=== PATIENT | female | born 1965 | race American Indian/Alaskan Native ===

== ENCOUNTER 2017-02-12 17:32 | Emergency (ER) | payer OTHER ==
[2017-02-12 17:48] VITALS: BP 136/75
--- NOTE | 2017-02-12 17:51 | EDM.PDOC ---
ED HPI GENERAL MEDICAL PROBLEM - General Chief Complaint: General Stated Complaint: [id number] COLD AND BREATHING CANT TALK EARS Time Seen by Provider: 02/12/17 17:44 Source of Information: Reports: Patient History Limitations: Reports: No Limitations - History of Present Illness INITIAL COMMENTS - FREE TEXT/NARRATIVE: 51 yo [place] Female c/o sore throat since ( 4 days). Pt. has four grand children who she watches and have been sick. Pt. also c/o sinus drainage and cough Onset Date: 02/09/17 Onset Time: 12:00 Duration: Day(s): Location: Reports: Head, Face, Chest Severity: Moderate Improves with: Reports: None Worsens with: Reports: None Context: Reports: Sick Contact Associated Symptoms: Reports: Cough, Fever/Chills, Headaches - Related Data Allergies Allergy/AdvReac Type Severity Reaction Status Date / Time lactose Allergy Diarrhea Verified 02/12/17 17:38 miconazole Allergy Blisters Verified 02/12/17 17:38 promethazine [From Phenergan] Allergy Blurred Verified 02/12/17 17:38 Vision Home Meds: Home Meds Insulin Detemir [Levemir Flexpen] 30 units SUBCUT BEDTIME 02/04/14 [History] Multivitamin [Multi-Vitamin Daily] 1 tab PO DAILY 02/04/14 [History] metFORMIN HCl [Metformin HCl] 1,000 mg PO BID 02/04/14 [History] Lisinopril [Zestril] 1 tab PO DAILY 05/01/15 [History] Albuterol [Proventil HFA] 6.7 gm INH Q4H PRN 12/22/15 [History] Cholecalciferol (Vitamin D3) [Vitamin D3] 2,000 units PO DAILY 12/22/15 [History ] Fluticasone Propionate [Flovent] 2 spray IH DAILY PRN 12/22/15 [History] Ibuprofen 800 mg PO TID PRN 12/22/15 [History] Insulin Aspart [NovoLOG] 5 unit SUBCUT TIDMEALS 12/22/15 [History] atorvaSTATin Calcium [Atorvastatin Calcium] 10 mg PO DAILY 12/22/15 [History] Aspirin [Halfprin] 1 tab PO DAILY 03/13/16 [History] Past Medical History HEENT History: Reports: Other (See Below) Other HEENT History: wears glasses Cardiovascular History: Reports: Hypertension Respiratory History: Reports: Pneumonia, Recurrent Other Respiratory History: hasn't had pneumonia since 2012, sore throat Gastrointestinal History: Reports: GERD Genitourinary History: Reports: None 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 (See Below) Other OB/BYN History: 2 c-sections in 1988 and 1990 Musculoskeletal History: Reports: Osteoarthritis Neurological History: Reports: None Psychiatric History: Reports: None Endocrine/Metabolic History: Reports: Diabetes, Type II, IDDM, Obesity/BMI 30+ Other Endocrine/Metabolic History: diagnosed in 1994 Hematologic History: Reports: Anesthesia Reaction, Iron Deficiency Immunologic History: Reports: None Oncologic (Cancer) History: Reports: None Dermatologic History: Reports: None, Other (See Below) Other Dermatologic History: infection to left great toe with debridement - Infectious Disease History Infectious Disease History: Reports: Chicken Pox - Past Surgical History Female Surgical History: Reports: Section Musculoskeletal Surgical History: Reports: Other (See Below) Social & Family History - Family History Family Medical History: Noncontributory Cardiac: Reports: CAD : Reports: Renal Disease/Insufficiency Endocrine/Metabolic: Reports: Diabetes, type II, Obesity/MBI 30+ - Tobacco Use Smoking Status *Q: Former Smoker Years of Tobacco use: 25 Packs/Tins Daily: 1 Used Tobacco, but Quit: Yes Month Tobacco Last Used: April Second Hand Smoke Exposure: No - Caffeine Use Caffeine Use: Reports: Coffee, Soda - Alcohol Use Days Per Week of Alcohol Use: 0 - Recreational Drug Use Recreational Drug Use: No - Living Situation & Occupation Living situation: Reports: with Family ED ROS ENT - Review of Systems Review Of Systems: See Below Constitutional: Reports: No Symptoms HEENT: Reports: Ear Pain, Sinus Problem, Throat Pain Respiratory: Reports: Cough Cardiovascular: Reports: No Symptoms Endocrine: Reports: No Symptoms GI/Abdominal: Reports: No Symptoms : Reports: No Symptoms Musculoskeletal: Reports: No Symptoms Skin: Reports: No Symptoms Neurological: Reports: No Symptoms Psychiatric: Reports: No Symptoms Hematologic/Lymphatic: Reports: No Symptoms Immunologic: Reports: No Symptoms ED EXAM, ENT - Physical Exam Exam: See Below Exam Limited By: No Limitations General Appearance: Alert, No Apparent Distress, Obese Eye Exam: Bilateral Eye: EOMI, PERRL Ears: Normal External Exam, Normal Canal, Hearing Grossly Normal, TM Bulging ( Bilateral) Nose: Normal Inspection, Normal Mucousa, No Blood Mouth/Throat: Normal Inspection, Normal Gums, Normal Oropharynx, Pharyngeal Erythema, Throat Pain Head: Atraumatic Neck: Normal Inspection Respiratory/Chest: No Respiratory Distress, Lungs Clear Cardiovascular: Normal Peripheral Pulses, Regular Rate, Rhythm, No Edema GI/Abdominal: Normal Bowel Sounds, Soft Back: Normal Inspection Extremities: Normal Inspection, Normal Range of Motion Neurological: Alert, Oriented, CN II-XII Intact, Normal Cognition Psychiatric: Normal Affect Skin: Warm, Dry, Intact Lymphatic: No Adenopathy Departure - Departure Time of Disposition: 17:56 Disposition: Home, Self-Care 01 Condition: Good Clinical Impression: Nasal sinus congestion, Cough in adult Pharyngitis Qualifiers: Pharyngitis/tonsillitis etiology: unspecified etiology Qualified Code(s): J02.9 - Acute pharyngitis, unspecified - Discharge Information Forms: ED Department Discharge Additional Instructions: Rest Increase intake of Water and Juice Take Daily Multivitamin Try using a Vics Vaporizer in your bedroom Medications: ZITHROMAX 250mg QD # 4 LADI 180mg QD # 10 TESSALON PERLES 100mg # 30 F/U w/ PCP
== END 2017-02-12 18:10 | disposition home or self-care (01) ==
LOC: DL.ED 17:32
DX: J02.9 Acute pharyngitis, unspecified (principal); E11.9 Type 2 diabetes mellitus without complications; Z91.011 Allergy to milk products; Z88.8 Allergy status to other drugs, medicaments and biological substances; Z79.4 Long term (current) use of insulin; Z79.82 Long term (current) use of aspirin; Z79.899 Other long term (current) drug therapy; Z87.891 Personal history of nicotine dependence
CPT/HCPCS: 87081; 87430; 87804; 99283

== ENCOUNTER 2018-12-16 11:53 | Emergency (ER) | payer MEDICAID, OTHER ==
[2018-12-16 13:47] VITALS: BP 133/68; PULSE 101
[2018-12-16] MEDS ORDERED: Sodium Chloride 0.9% 10 ML Syringe FLUSH PRN (13:47)
[2018-12-16] MEDS ORDERED: Piperacillin/Tazobactam 3.375 GM in Sodium Chloride 0.9% 100 ML IV ONE (13:51)
[2018-12-16] MEDS ORDERED: Acetaminophen/HYDROcodone 325-10 MG Tab PO ONE (13:52)
[2018-12-16 14:24] LABS: ANION GAP 11.3; CHLORIDE,CL 102 mmol/L (101-111); SODIUM,NA 136 mmol/L (135-145)
--- NOTE | 2018-12-16 15:10 | EDM.PDOC ---
"Scribed by Jeanne Kelly 12/16/18 [id number] for Niya Cam MD ED HPI GENERAL MEDICAL PROBLEM - General Chief Complaint: Lower Extremity Injury/Pain Stated Complaint: POSSIBLE INFECTION L FOOT Time Seen by Provider: 12/16/18 13:30 Source of Information: Reports: Patient, RN, RN Notes Reviewed History Limitations: Reports: No Limitations - History of Present Illness INITIAL COMMENTS - FREE TEXT/NARRATIVE: Patient presents to ER with pain in the left foot. She is a diabetic and has been seeing a blueprint processor for a diabetic foot ulcer. On Monday she noticed that the foot started to get red and now goes up to the ankle. She states that she has had chills but maybe low grade fevers, but did not measure her temperature. Onset: Gradual Duration: Getting Worse Location: Reports: Lower Extremity, Left Quality: Reports: Ache Severity: Severe Improves with: Reports: None Worsens with: Reports: None Associated Symptoms: Reports: No Other Symptoms Left Feet Pain Score (Numeric/FACES): 6 - Related Data Allergies Allergy/AdvReac Type Severity Reaction Status Date / Time clindamycin Allergy Itching Verified 12/16/18 13:51 lactose Allergy Diarrhea Verified 12/16/18 13:47 miconazole Allergy Blisters Verified 12/16/18 13:47 promethazine [From Phenergan] Allergy Blurred Verified 12/16/18 13:47 Vision Home Meds: Home Meds Insulin Detemir [Levemir Flexpen] 60 units SUBCUT BEDTIME 02/04/14 [History] Multivitamin [Multi-Vitamin Daily] 1 tab PO DAILY 02/04/14 [History] metFORMIN HCl [Metformin HCl] 1,000 mg PO BID 02/04/14 [History] Lisinopril [Zestril] 1 tab PO DAILY 05/01/15 [History] Albuterol [Proventil HFA] 6.7 gm INH Q4H PRN 12/22/15 [History] Cholecalciferol (Vitamin D3) [Vitamin D3] 2,000 units PO DAILY 12/22/15 [History ] Fluticasone Propionate [Flovent] 2 spray IH DAILY PRN 12/22/15 [History] Ibuprofen 800 mg PO TID PRN 12/22/15 [History] Insulin Aspart [NovoLOG] 40 unit SUBCUT TIDMEALS 12/22/15 [History] atorvaSTATin Calcium [Atorvastatin Calcium] 10 mg PO DAILY 12/22/15 [History] Aspirin [Halfprin] 1 tab PO DAILY 03/13/16 [History] Past Medical History HEENT History: Reports: Impaired Vision, Other (See Below) Other HEENT History: wears glasses Cardiovascular History: Reports: Hypertension Respiratory History: Reports: Pneumonia, Recurrent Other Respiratory History: hasn't had pneumonia since 2011, sore throat Gastrointestinal History: Reports: GERD Genitourinary History: Reports: None 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 (See Below) Other BUSINESS DEVELOPMENT PROFESSIONAL History: 2 c-sections in 1988 and 1990 Musculoskeletal History: Reports: Osteoarthritis Neurological History: Reports: None Psychiatric History: Reports: None Endocrine/Metabolic History: Reports: Diabetes, Type II, IDDM, Obesity/BMI 30+ Other Endocrine/Metabolic History: diagnosed in 1994 Hematologic History: Reports: Anesthesia Reaction, Iron Deficiency Immunologic History: Reports: None Oncologic (Cancer) History: Reports: None Dermatologic History: Reports: None, Other (See Below) Other Dermatologic History: infection to left great toe with debridement - Infectious Disease History Infectious Disease History: Reports: Chicken Pox - Past Surgical History Head Surgeries/Procedures: Reports: None Female Surgical History: Reports: Section Musculoskeletal Surgical History: Reports: Other (See Below) Other Musculoskeletal Surgeries/Procedures:: 2 back surgeries Social & Family History - Family History Family Medical History: Noncontributory Cardiac: Reports: CAD : Reports: Renal Disease/Insufficiency Endocrine/Metabolic: Reports: Diabetes, type II, Obesity/MBI 30+ - Caffeine Use Caffeine Use: Reports: Coffee, Soda - Living Situation & Occupation Living situation: Reports: with Family Review of Systems - Review of Systems Review Of Systems: ROS reveals no pertinent complaints other than HPI. ED EXAM, GENERAL - Physical Exam Exam: See Below Exam Limited By: No Limitations General Appearance: Alert, WD/WN, No Apparent Distress, Obese Throat/Mouth: Normal Inspection, Normal Voice Head: Atraumatic, Normocephalic Respiratory/Chest: No Respiratory Distress, Lungs Clear, Normal Breath Sounds, No Accessory Muscle Use, Chest Non-Tender Cardiovascular: Regular Rate, Rhythm, No Edema Extremities: Joint Swelling (Left 1st MTPJ with a chronic appearing ulcer at the plantar surface with a collagen dressing, the entire left toe is swollen, acutely tender and erythematous with erythema extending to the ankle.) Neurological: Alert, Oriented, No Motor/Sensory Deficits Psychiatric: Normal Mood Course - Vital Signs Last Recorded V/S: Last Vital Signs Temp 97.5 F 12/16/18 13:15 Pulse 101 H 12/16/18 13:15 Resp 16 12/16/18 13:15 BP 133/68 12/16/18 13:15 Pulse Ox 98 12/16/18 13:15 - Orders/Labs/Meds Orders: Active Orders 24 hr Category Date Time Status Peripheral IV Care [RC] . DIRECTED Care 12/16/18 13:49 Active Toes Great Toe Lt TA [CR] Urgent Exams 12/16/18 13:47 Taken Sodium Chloride 0.9% [Saline Flush] Med 12/16/18 13:47 Active 10 ml FLUSH ASDIRECTED PRN Peripheral IV Insertion Adult [OM.PC] Stat Oth 12/16/18 13:46 Ordered Medication Orders Sodium Chloride (Saline Flush) 10 ml FLUSH ASDIRECTED PRN PRN Reason: Keep Vein Open Last Admin: 12/16/18 14:26 Dose: 10 ml Labs: Laboratory Tests 12/16/18 12/16/18 12/16/18 Range/Units 14:00 14:00 14:00 WBC 11.9 H (5.0-10.0) 10^3/uL RBC 5.50 H (4.2-5.4) 10^6/uL Hgb 15.0 (12.0-16.0) g/dL Hct 44.7 (37.0-47.0) % MCV 81.3 (80-100) fL MCH 27.3 (27.0-34.0) pg MCHC 33.6 (33.0-35.0) g/dL Plt Count 225 (150-450) 10^3/uL Neut % (Auto) 75.9 H (42.2-75.2) % Lymph % (Auto) 14.7 L (20.5-50.1) % Island % (Auto) 7.3 (2-8) % Eos % (Auto) 1.8 (1.0-3.0) % Baso % (Auto) 0.3 (0.0-1.0) % Sodium 136 (135-145) mmol/L Potassium 4.3 (3.6-5.0) mmol/L Chloride 102 (101-111) mmol/L Carbon Dioxide 27.0 (21.0-31.0) mmol/L Anion Gap 11.3 BUN 10 (7-18) mg/dL Creatinine 0.7 (0.6-1.3) mg/dL Est Cr Clr Drug Dosing TNP Estimated GFR (MDRD) > 60 BUN/Creatinine Ratio 14.28 Glucose 264 H (74-105) mg/dL Lactic Acid 1.1 (0.5-2.2) mmol/L Calcium 9.1 (8.4-10.2) mg/dl Total Bilirubin 0.6 (0.2-1.0) mg/dL AST 15 (10-42) IU/L ALT 21 (10-60) IU/L Alkaline Phosphatase 89 (42-121) IU/L C-Reactive Protein (0.0-1.3) mg/dL Total Protein 8.0 (6.7-8.2) g/dl Albumin 3.7 (3.2-5.5) g/dl Globulin 4.3 Albumin/Globulin Ratio 0.86 12/16/18 Range/Units 14:00 WBC (5.0-10.0) 10^3/uL RBC (4.2-5.4) 10^6/uL Hgb (12.0-16.0) g/dL Hct (37.0-47.0) % MCV (80-100) fL MCH (27.0-34.0) pg MCHC (33.0-35.0) g/dL Plt Count (150-450) 10^3/uL Neut % (Auto) (42.2-75.2) % Lymph % (Auto) (20.5-50.1) % Island % (Auto) (2-8) % Eos % (Auto) (1.0-3.0) % Baso % (Auto) (0.0-1.0) % Sodium (135-145) mmol/L Potassium (3.6-5.0) mmol/L Chloride (101-111) mmol/L Carbon Dioxide (21.0-31.0) mmol/L Anion Gap BUN (7-18) mg/dL Creatinine (0.6-1.3) mg/dL Est Cr Clr Drug Dosing Estimated GFR (MDRD) BUN/Creatinine Ratio Glucose (74-105) mg/dL Lactic Acid (0.5-2.2) mmol/L Calcium (8.4-10.2) mg/dl Total Bilirubin (0.2-1.0) mg/dL AST (10-42) IU/L ALT (10-60) IU/L Alkaline Phosphatase (42-121) IU/L C-Reactive Protein > 20.0 H (0.0-1.3) mg/dL Total Protein (6.7-8.2) g/dl Albumin (3.2-5.5) g/dl Globulin Albumin/Globulin Ratio Meds: Medications Generic Name Dose Route Start Last Admin Trade Name Freq PRN Reason Stop Dose Admin Sodium Chloride 10 ml 12/16/18 13:47 12/16/18 14:26 Saline Flush FLUSH 10 ml ASDIRECTED PRN Administration Keep Vein Open Discontinued Medications Generic Name Dose Route Start Last Admin Trade Name Freq PRN Reason Stop Dose Admin Hydrocodone Bitart/Acetaminophen 1 tab 12/16/18 13:52 12/16/18 14:24 [place] 325-10 Mg PO 12/16/18 13:53 1 tab ONETIME ONE Administration Piperacillin Sod/Tazobactam 100 mls @ 200 mls/hr 12/16/18 13:51 12/16/18 14: 23 Sod 3.375 gm/ Sodium Chloride IV 12/16/18 14:20 200 mls/hr ONETIME ONE Administration - Radiology Interpretation Free Text/Narrative:: [facility] Final Radiology Report Call: [phone] assistance Online chat: [email or web address] Name: DIANE MATHEWS Age: 53Years F Date: 12/16/2018 SSN: -- : 1965 Study: XR TOES LEFT Requesting Physician: NIYA CAM Images: 3 Addl Studies: Provided Clinical History: Contrast: Contrast Medium: Contrast Amount: Contrast Method: Page 1 of 2 PROCEDURE INFORMATION: Exam: XR Left Toe(s) Exam date and time: 12/16/2018 2:06 PM Clinical history: 53 years old, female; Other: Possible osteomyelitis left 1st toe/mtpj--chronic nonhealing diabetic plantar ulcer overlying left 1st mtpj with acute toe and forefoot erythema TECHNIQUE: Imaging protocol: XR Left toes. Views: Minimum 2 views. COMPARISON: No relevant prior studies available. FINDINGS: Bones/joints: No acute fracture or dislocation is identified. There is a mild hallux valgus deformity. The first metatarsophalangeal joint is mildly narrowed and with mild periarticular osteophyte formation, as are multiple interphalangeal joints. There are productive changes about the hallux sesamoids. There is no osseous erosion or cortical destruction. Soft tissues: There is soft tissue swelling about the first toe, with apparent ulceration along the plantar aspect. Small calcification is present in the soft tissues adjacent to the base of the first proximal phalanx, and could be degenerative. There are also small calcifications in the soft tissues adjacent to the plantar and posterior calcaneus, which could be degenerative. IMPRESSION: 1. Soft tissue swelling about the first toe, with apparent ulceration along the plantar aspect. No definite radiographic evidence for osteomyelitis, but consider three-phase bone scan or MRI in this regard. 2. Degenerative changes as described. 3. Mild hallux valgus. DIANE MATHEWS | Final Radiology Report CONFIDENTIALITY STATEMENT This report is intended only for use by the referring physician, and only in accordance with law. If you received this in error, call [phone]. Page 2 of 2 Thank you for allowing us to participate in the care of your patient. Dictated and Authenticated by: Jose Francisco Moseley MD 12/16/2018 2:57 PM Central Time ([place] & [place]) Departure - Departure Time of Disposition: 15:00 Disposition: Home, Self-Care 01 Condition: Good Clinical Impression: Cellulitis of foot, left, Diabetic ulcer of left great toe - Discharge Information *PRESCRIPTION DRUG MONITORING PROGRAM REVIEWED*: No *COPY OF PRESCRIPTION DRUG MONITORING REPORT IN PATIENT JASMYN: No Instructions: Cellulitis, Adult, [id number], Diabetes Mellitus and Foot Care Forms: ED Department Discharge Additional Instructions: Rx: Cephalexin 500mg Rx: Doxycycline 100mg Rx: Hydrocodone APAP 5mg/325mg *Do not drive while under the influence of this medication. Call your blueprint processor tomorrow to schedule an urgent follow up appointment. See your primary doctor for recheck if unable to see your blueprint processor in the next 2 days. - My Orders Last 24 Hours: My Active Orders 12/16/18 13:46 Peripheral IV Insertion Adult [OM.PC] Stat 12/16/18 13:47 Toes Great Toe Lt TA [CR] Urgent Sodium Chloride 0.9% [Saline Flush] 10 ml FLUSH ASDIRECTED PRN 12/16/18 13:49 Peripheral IV Care [RC] . DIRECTED - Assessment/Plan Last 24 Hours: My Active Orders 12/16/18 13:46 Peripheral IV Insertion Adult [OM.PC] Stat 12/16/18 13:47 Toes Great Toe Lt TA [CR] Urgent Sodium Chloride 0.9% [Saline Flush] 10 ml FLUSH ASDIRECTED PRN 12/16/18 13:49 Peripheral IV Care [RC] . DIRECTED I have read and agree with the documentation that has been completed regarding this visit. By signing this record, I attest that the documentation was completed in my physical presence and is an accurate record of the encounter."
== END 2018-12-16 15:42 | disposition home or self-care (01) ==
LOC: DL.ED 11:53
DX: L03.116 Cellulitis of left lower limb (principal); E11.621 Type 2 diabetes mellitus with foot ulcer; L97.529 Non-pressure chronic ulcer of other part of left foot with unspecified severity; I10 Essential (primary) hypertension; E66.9 Obesity, unspecified; Z79.4 Long term (current) use of insulin; Z79.899 Other long term (current) drug therapy; Z79.82 Long term (current) use of aspirin; Z88.1 Allergy status to other antibiotic agents; Z88.8 Allergy status to other drugs, medicaments and biological substances; Z91.011 Allergy to milk products
CPT/HCPCS: 36415; 73660; 80053; 83605; 85025; 86140; 96365; 99283; A9270; J2543; J7050

== ENCOUNTER 2019-05-02 17:23 | Emergency (ER) | payer MEDICAID ==
[2019-05-02 17:34] VITALS: BP 150/87; PULSE 104
--- NOTE | 2019-05-02 17:41 | EDM.PDOC ---
<Lisandro Velarde - Last Filed: 05/02/19 17:49> ED HPI GENERAL MEDICAL PROBLEM - General Chief Complaint: Lower Extremity Injury/Pain Stated Complaint: LEFT FOOT FELL AND HURT IT Time Seen by Provider: 05/02/19 17:38 Source of Information: Reports: Patient, RN, RN Notes Reviewed History Limitations: Reports: No Limitations - History of Present Illness INITIAL COMMENTS - FREE TEXT/NARRATIVE: 53 y.o F presents with L foot pain after a fall that occurred 2hours ago. Patient reports that she slipped on some ice, injuring her L foot. Patient currently has a wound vac to the top of the L foot, reports that it is healing well and appears to not have been affected in the fall. Patient did take 2 tylenol at 1700 650mg which helped very little with the pain. Patient reports both arms hurt, legs hurt, and foot hurts. Patient reports that both ankle and foot are swollen and tender to touch. Reports sharp, shooting pain. She was unable to stand and bear weight on her left foot after she fell. Onset: Today Duration: Constant Location: Reports: Lower Extremity, Left (ankle) Quality: Reports: Sharp, Throbbing Severity: Mild Improves with: Reports: Immobilization Worsens with: Reports: Movement Associated Symptoms: Denies: Chest Pain, cough w sputum, Fever/Chills, Headaches , Loss of Appetite, Nausea/Vomiting, Shortness of Breath, Syncope Treatments [employer]: Reports: Acetaminophen (650 mg prior to ED arrival) Left Feet Pain Score (Numeric/FACES): 8 - Related Data Allergies Allergy/AdvReac Type Severity Reaction Status Date / Time clindamycin Allergy Itching Verified 05/02/19 17:35 lactose Allergy Diarrhea Verified 05/02/19 17:35 miconazole Allergy Blisters Verified 05/02/19 17:35 promethazine [From Phenergan] Allergy Blurred Verified 05/02/19 17:35 Vision Home Meds: Home Meds Insulin Detemir [Levemir Flexpen] 60 units SUBCUT BEDTIME 02/04/14 [History] Multivitamin [Multi-Vitamin Daily] 1 tab PO DAILY 02/04/14 [History] metFORMIN HCl [Metformin HCl] 1,000 mg PO BID 02/04/14 [History] Lisinopril [Zestril] 1 tab PO DAILY 05/01/15 [History] Albuterol [Proventil HFA] 6.7 gm INH Q4H PRN 12/22/15 [History] Cholecalciferol (Vitamin D3) [Vitamin D3] 2,000 units PO DAILY 12/22/15 [History ] Fluticasone Propionate [Flovent] 2 spray IH DAILY PRN 12/22/15 [History] Ibuprofen 800 mg PO TID PRN 12/22/15 [History] Insulin Aspart [NovoLOG] 40 unit SUBCUT TIDMEALS 12/22/15 [History] atorvaSTATin Calcium [Atorvastatin Calcium] 10 mg PO DAILY 12/22/15 [History] Aspirin [Halfprin] 1 tab PO DAILY 03/13/16 [History] Past Medical History HEENT History: Reports: Impaired Vision, Other (See Below) Other HEENT History: wears glasses Cardiovascular History: Reports: Hypertension Respiratory History: Reports: Bronchitis, Recurrent, Pneumonia, Recurrent Other Respiratory History: hasn't had pneumonia since 2011 Gastrointestinal History: Reports: GERD Genitourinary History: Reports: None NANOSYSTEMS ENGINEER History: Reports: Other (See Below) Other NANOSYSTEMS ENGINEER History: 2 c-sections in 1988 and 1990 Musculoskeletal History: Reports: Osteoarthritis Neurological History: Reports: None Psychiatric History: Reports: None Endocrine/Metabolic History: Reports: Diabetes, Type II, IDDM, Obesity/BMI 30+ Other Endocrine/Metabolic History: diagnosed in 1994 Hematologic History: Reports: Anesthesia Reaction, Iron Deficiency Immunologic History: Reports: None Oncologic (Cancer) History: Reports: None Dermatologic History: Reports: None, Other (See Below) Other Dermatologic History: infection to left great toe with debridement 2018 Unlcer to bottom of left ball of foot. - Infectious Disease History Infectious Disease History: Reports: Chicken Pox, Mumps - Past Surgical History Head Surgeries/Procedures: Reports: None Respiratory Surgical History: Reports: None GI Surgical History: Reports: None Female Surgical History: Reports: Section Musculoskeletal Surgical History: Reports: Other (See Below) Other Musculoskeletal Surgeries/Procedures:: 2 back surgeries, lower lumbar surgery, tumor removal underneath spinal column, abscess removal left scapula area. Social & Family History - Family History Family Medical History: Noncontributory Cardiac: Reports: CAD : Reports: Renal Disease/Insufficiency Endocrine/Metabolic: Reports: Diabetes, type II, Obesity/MBI 30+ - Caffeine Use Caffeine Use: Reports: Coffee - Living Situation & Occupation Living situation: Reports: with Family Review of Systems - Review of Systems Review Of Systems: See Below Constitutional: Reports: No Symptoms Eyes: Reports: No Symptoms Ears: Reports: No Symptoms Nose: Reports: No Symptoms Mouth/Throat: Reports: No Symptoms Respiratory: Reports: No Symptoms Cardiovascular: Reports: No Symptoms GI/Abdominal: Reports: No Symptoms Genitourinary: Reports: No Symptoms Musculoskeletal: Reports: Leg Pain (left ankle), Joint Pain (left ankle), Joint Swelling (left ankle) Skin: Reports: No Symptoms Neurological: Reports: No Symptoms Psychiatric: Reports: No Symptoms ED EXAM, GENERAL - Physical Exam Exam: See Below Exam Limited By: No Limitations General Appearance: Alert, WD/WN, Mild Distress Respiratory/Chest: No Respiratory Distress, Lungs Clear, Normal Breath Sounds, No Accessory Muscle Use, Chest Non-Tender Cardiovascular: Normal Peripheral Pulses, Regular Rate, Rhythm, No Edema, No Gallop, No JVD, No Murmur, No Rub Peripheral Pulses: 0: Dorsalis Pedis (L) (unable to assess due to wound vac on dorsum of left foot), 2+: Posterior Tibial (L) GI/Abdominal: Normal Bowel Sounds, Soft, Non-Tender, No Organomegaly, No Distention, No Abnormal Bruit, No Mass Extremities: No Pedal Edema, Normal Capillary Refill, Joint Swelling (left ankle ), Leg Pain, Limited Range of Motion Neurological: Alert, Oriented, CN II-XII Intact, Normal Cognition, Normal Gait, Normal Reflexes, No Motor/Sensory Deficits Psychiatric: Normal Affect, Normal Mood Skin Exam: Warm, Dry, Intact, Ecchymosis (left ankle) Course - Vital Signs Last Recorded V/S: Last Vital Signs Temp 97 F 05/02/19 17:29 Pulse 104 H 05/02/19 17:29 Resp 20 05/02/19 17:29 BP 150/87 H 05/02/19 17:29 Pulse Ox 100 05/02/19 17:29 - Orders/Labs/Meds Orders: Active Orders 24 hr Category Date Time Status Ankle Min 3V Lt [CR] Urgent Exams 05/02/19 17:50 Taken Departure - Departure Disposition: Home, Self-Care 01 Clinical Impression: Fibula fracture Qualifiers: Encounter type: initial encounter Fibula location: distal Fracture type: closed Fracture morphology: unspecified fracture morphology Laterality: left Qualified Code(s): S82.832A - Other fracture of upper and lower end of left fibula, initial encounter for closed fracture - Discharge Information Instructions: Cast or Splint Care, Adult, [id number] Forms: ED Department Discharge Additional Instructions: May walk with walking boot on Follow up with Dr. Jensen next week May take boot off to change wound vac dressing and shower, and for bed Ice area as tolerated May use Tylenol as directed for pain Make sure wound vac is draining appropriately after each dressing change and reapplication of the boot Sepsis Event Note - Evaluation Sepsis Screening Result: No Definite Risk - Focused Exam Vital Signs: Vital Signs Temp Pulse Resp BP Pulse Ox 05/02/19 17:29 97 F 104 H 20 150/87 H 100 Date Exam was Performed: 05/02/19 Time Exam was Performed: 17:49 <Betsy Chambers - Last Filed: 05/02/19 19:16> Course - Radiology Interpretation Free Text/Narrative:: Left ankle xray: FINDINGS: Bones/joints: Distal left fibular oblique fracture at the level of the tibiofibular ligament. No significant displacement. No tibial fracture. Previous 1st metatarsal surgery. No disruption of the ankle mortise. Soft tissues: Soft tissue swelling. Calcific plantar fasciitis. Distal Achilles tendon minor calcification consistent chronic tendinopathy. IMPRESSION: 1. Distal left fibular oblique fracture without significant displacement. This is at the level of the tibiofibular ligament. 2. Soft tissue swelling. 3. Calcific plantar fasciitis and minor distal Achilles tendon calcific tendinitis. Thank you for allowing us to participate in the care of your patient. Dictated and Authenticated by: Felix Tran MD 05/02/2019 6:08 PM Central Time ([place] & [place]) See rad report - Re-Assessments/Exams Free Text/Narrative Re-Assessment/Exam: 05/02/19 19:16 I personally performed or re-performed the physical examination and medical decision making. I have verified all student documentation or findings, including history, physical exam and/or medical decision making. Departure - Departure Time of Disposition: 19:05 Condition: Fair - Discharge Information *PRESCRIPTION DRUG MONITORING PROGRAM REVIEWED*: No *COPY OF PRESCRIPTION DRUG MONITORING REPORT IN PATIENT JASMYN: No Sepsis Event Note - Focused Exam Date Exam was Performed: 05/02/19 Time Exam was Performed: 19:15
== END 2019-05-02 19:29 | disposition home or self-care (01) ==
LOC: DL.ED 17:23
DX: S82.832A Other fracture of upper and lower end of left fibula, initial encounter for closed fracture (principal); I10 Essential (primary) hypertension; E11.9 Type 2 diabetes mellitus without complications; Z79.4 Long term (current) use of insulin; Z79.84 Long term (current) use of oral hypoglycemic drugs; Z79.899 Other long term (current) drug therapy; Z88.1 Allergy status to other antibiotic agents; Z88.3 Allergy status to other anti-infective agents; Z91.011 Allergy to milk products; W00.0XXA Fall on same level due to ice and snow, initial encounter
CPT/HCPCS: 73610-LT; 99283-25

== ENCOUNTER 2019-12-05 11:06 | Inpatient (IN) | payer MEDICAID ==
[2019-12-05] MEDS ORDERED: Ondansetron 4 MG Tab.DIS PO PRN (15:38)
[2019-12-05] MEDS ORDERED: Non-Formulary Medication 1 Each (Trolamine Salicylate/Aloe Vera 1 APPLIC) TOP PRN (15:42)
[2019-12-05] MEDS ORDERED: Albuterol 6.7 GM Inhaler INH PRN (15:42)
[2019-12-05] MEDS: Docusate Sodium 100 MG Cap PO PRN (16:42)
[2019-12-05] MEDS: oxyCODONE 5 MG Tab PO PRN ×2 (16:42→22:40)
[2019-12-05] MEDS: metroNIDAZOLE 250 MG Tab PO SCH (18:30)
[2019-12-05] MEDS: Insulin Lispro 100 Units/ML 3 ML Vial SUBCUT SCH (18:30)
--- NOTE | 2019-12-05 19:38 | HP ---
CHIEF COMPLAINT: Left lower abdomen wound. HISTORY OF PRESENT ILLNESS: The patient is a 54-year-old female who was recently discharged from [facility] in [place]. She was admitted there last November 28, 2019, with sepsis with cellulitis of the left lower abdomen with open draining wound. She had incision and drainage and debridement of the necrotizing soft tissue infection on 11/30/2019, and blood cultures were negative. Wound cultures showed group B strep, methicillin-resistant Staphylococcus aureus, anaerobes, and she was followed by ID. Surgery also placed a wound VAC to the open wound. Now, she is admitted to swing bed to continue with her IV antibiotics and wound VAC management. PAST MEDICAL HISTORY: Remarkable for diabetes mellitus, hypertension, and obesity. SOCIAL HISTORY: The patient is a nonsmoker, nonalcohol drinker. FAMILY HISTORY: Noncontributory. REVIEW OF SYSTEMS: The patient denies any fever, chills, chest pain, shortness of breath, abdominal pain, nausea, vomiting, dysuria. She did mention that this morning she has some cramping of the right lower leg. Otherwise, the review of systems is negative. MEDICATIONS: Amlodipine 5 mg daily; aspirin 81 mg daily; Lipitor 10 mg daily; Levemir 30 units twice a day; latanoprost ophthalmic drops; Flagyl 500 mg 1 tablet every 12 hours for 10 days; morphine CR 15 mg q.12 hours; multivitamins; NovoLog 40 units at breakfast, 30 units at lunch, and 40 units at supper; omeprazole 20 mg daily; oxycodone immediate-release 5 mg every 4 hours as needed; pioglitazone 15 mg daily; ProAir 1 puff every 4 hours as needed; saxagliptin 2.5 mg daily; ceftaroline 400 mg every 12 hours for 14 days; Trolamine cream; and vitamin D3. ALLERGIES: Clindamycin, doxycycline, Phenergan with codeine, and miconazole. PHYSICAL EXAMINATION: General: The patient is alert and oriented, not in any acute distress. Vital Signs: Blood pressure is 140/69, pulse of 84, respirations of 18, temperature of 97.3, and saturations 93%. SHEENT: Normocephalic. There are pink palpebral conjunctivae. Sclerae anicteric. Neck: No JVD. No lymphadenopathy. Heart: Regular rate and rhythm. Normal S1 and S2. No gallops. No rubs. Lungs: Equal bilaterally. No crackles, no wheezing. Abdomen: Obese and remarkable for the abdominal wall pannus and there is the wound VAC on the left lower abdomen. Otherwise, it is soft. Bowel sounds positive. Extremities: Negative for any significant pedal edema. No calf tenderness. Dorsalis pedis pulse right foot is good. ADMITTING DIAGNOSES: 1. Necrotizing soft tissue infection of the abdominal wall. 2. Hypertension. 3. Type 2 diabetes mellitus. 4. History of sepsis. TREATMENT PLAN: The patient is going to be continued on her current medication and continue with IV antibiotic and wound VAC. The rest of the management as necessary. [facility] /[id number]
[2019-12-05] MEDS: Sodium Chloride 0.9% 10 ML Syringe FLUSH PRN (22:35)
[2019-12-05] MEDS: Insulin Glarg,Human.Rec.Analog 100 Unit/ML SUBCUT SCH (22:36)
[2019-12-05] MEDS: Morphine 15 MG Tab.ER PO SCH (22:38)
[2019-12-05] MEDS: Cholecalciferol (Vitamin D3) 25 MCG Tab PO SCH (22:40)
[2019-12-05] MEDS: Latanoprost 0.005% Ophth Soln 2.5 ML Bottle EYERT SCH (22:41)
[2019-12-06] MEDS: Omeprazole 20 MG Cap.CR PO SCH (05:49)
[2019-12-06] MEDS: Docusate Sodium 100 MG Cap PO PRN (06:04)
[2019-12-06] MEDS: Insulin Lispro 100 Units/ML 3 ML Vial SUBCUT SCH ×3 (09:02→17:46)
[2019-12-06] MEDS: metroNIDAZOLE 250 MG Tab PO SCH ×2 (09:04→17:45)
[2019-12-06] MEDS: amLODIPine 5 MG Tab PO SCH (09:05)
[2019-12-06] MEDS: atorvaSTATin 10 MG Tab PO SCH (09:05)
[2019-12-06] MEDS: Aspirin 81 MG Tab.EC PO SCH (09:06)
[2019-12-06] MEDS: Morphine 15 MG Tab.ER PO SCH ×2 (09:06→22:01)
[2019-12-06] MEDS: Multivitamins, Therapeutic with Minerals Tab PO SCH (09:06)
[2019-12-06] MEDS: Cholecalciferol (Vitamin D3) 25 MCG Tab PO SCH ×2 (09:06→22:04)
[2019-12-06] MEDS: Insulin Glarg,Human.Rec.Analog 100 Unit/ML SUBCUT SCH ×2 (09:08→22:03)
[2019-12-06] MEDS ORDERED: Bisacodyl 10 MG Supp RECTAL PRN (09:24)
[2019-12-06] MEDS: SODIUM CHLORIDE 0.9% IV SCH ×2 (11:11→22:35)
[2019-12-06] MEDS: CEFTAROLINE FOSAMIL IV SCH ×2 (11:11→22:35)
[2019-12-06] MEDS: Docusate Sodium 100 MG Cap PO SCH ×2 (11:55→22:04)
[2019-12-06] MEDS: oxyCODONE 5 MG Tab PO PRN (14:05)
[2019-12-06] MEDS ORDERED: Acetaminophen 325 MG Tab PO PRN (16:44)
[2019-12-06] MEDS: Nystatin Topical Powder 30 GM Bottle TOP SCH (22:06)
[2019-12-06] MEDS: Latanoprost 0.005% Ophth Soln 2.5 ML Bottle EYERT SCH (22:06)
[2019-12-06] MEDS ORDERED: Water For Injection, Sterile 20 ML ONE (22:25)
[2019-12-07] MEDS: Omeprazole 20 MG Cap.CR PO SCH (06:26)
[2019-12-07] MEDS: amLODIPine 5 MG Tab PO SCH (09:35)
[2019-12-07] MEDS: metroNIDAZOLE 250 MG Tab PO SCH ×2 (09:35→18:07)
[2019-12-07] MEDS: Insulin Glarg,Human.Rec.Analog 100 Unit/ML SUBCUT SCH ×2 (09:36→23:25)
[2019-12-07] MEDS: Multivitamins, Therapeutic with Minerals Tab PO SCH (09:36)
[2019-12-07] MEDS: atorvaSTATin 10 MG Tab PO SCH (09:36)
[2019-12-07] MEDS: Morphine 15 MG Tab.ER PO SCH ×2 (09:36→22:55)
[2019-12-07] MEDS: Aspirin 81 MG Tab.EC PO SCH (09:36)
[2019-12-07] MEDS: Cholecalciferol (Vitamin D3) 25 MCG Tab PO SCH ×2 (09:36→22:55)
[2019-12-07] MEDS: Docusate Sodium 100 MG Cap PO SCH ×2 (09:36→22:55)
[2019-12-07] MEDS: Insulin Lispro 100 Units/ML 3 ML Vial SUBCUT SCH ×3 (09:38→18:07)
[2019-12-07] MEDS: CEFTAROLINE FOSAMIL IV SCH ×2 (09:44→22:58)
[2019-12-07] MEDS: SODIUM CHLORIDE 0.9% IV SCH ×2 (09:44→22:58)
[2019-12-07] MEDS: Nystatin Topical Powder 30 GM Bottle TOP SCH ×2 (09:46→23:08)
[2019-12-07] MEDS: Magnesium Hydroxide 400 MG/5 ML Susp 30 ML Cup PO PRN (11:13)
[2019-12-07] MEDS ORDERED: Insulin Lispro Protamine/Lispro 75-25 100 Units/ML 10 ML Vial SUBCUT ONE (13:57)
[2019-12-07] MEDS: Nystatin Susp 100,000 Unit/ML 5 ML UD Cup PO SCH ×2 (18:07→22:57)
[2019-12-07] MEDS ORDERED: Water For Injection, Sterile 20 ML ONE (22:25)
[2019-12-07] MEDS: Latanoprost 0.005% Ophth Soln 2.5 ML Bottle EYERT SCH (23:07)
[2019-12-08] MEDS: Omeprazole 20 MG Cap.CR PO SCH (06:32)
[2019-12-08] MEDS ORDERED: Magnesium Citrate Solution 296 ML Bottle PO ONE (09:07)
[2019-12-08] MEDS: Multivitamins, Therapeutic with Minerals Tab PO SCH (09:30)
[2019-12-08] MEDS: Docusate Sodium 100 MG Cap PO SCH ×2 (09:30→20:48)
[2019-12-08] MEDS: amLODIPine 5 MG Tab PO SCH (09:30)
[2019-12-08] MEDS: metroNIDAZOLE 250 MG Tab PO SCH ×2 (09:30→17:54)
[2019-12-08] MEDS: Aspirin 81 MG Tab.EC PO SCH (09:30)
[2019-12-08] MEDS: Morphine 15 MG Tab.ER PO SCH ×2 (09:31→20:49)
[2019-12-08] MEDS: Nystatin Topical Powder 30 GM Bottle TOP SCH ×2 (09:31→20:50)
[2019-12-08] MEDS: Nystatin Susp 100,000 Unit/ML 5 ML UD Cup PO SCH ×3 (09:31→20:49)
[2019-12-08] MEDS: Cholecalciferol (Vitamin D3) 25 MCG Tab PO SCH ×2 (09:31→20:50)
[2019-12-08] MEDS: atorvaSTATin 10 MG Tab PO SCH (09:31)
[2019-12-08] MEDS: Insulin Lispro 100 Units/ML 3 ML Vial SUBCUT SCH ×3 (09:32→17:55)
[2019-12-08] MEDS: Insulin Glarg,Human.Rec.Analog 100 Unit/ML SUBCUT SCH ×2 (09:32→20:48)
[2019-12-08] MEDS: SODIUM CHLORIDE 0.9% IV SCH ×2 (09:48→21:00)
[2019-12-08] MEDS: CEFTAROLINE FOSAMIL IV SCH ×2 (09:48→21:00)
[2019-12-08] MEDS: Latanoprost 0.005% Ophth Soln 2.5 ML Bottle EYERT SCH (20:51)
[2019-12-09] MEDS: Omeprazole 20 MG Cap.CR PO SCH (06:07)
--- NOTE | 2019-12-09 09:31 | PN ---
DATE: 12/09/2019 SUBJECTIVE: The patient is a 54-year-old female [facility] to complete IV antibiotics and also for wound dressing changes for necrotizing soft tissue infection of the abdominal wall. She has been doing fairly well. She denies any chest pain, shortness of breath, fever, or chills or any other significant complaints. OBJECTIVE: Vital Signs: Blood pressure is 102/59, pulse of 82, respirations 16, and temperature of 98. Heart: Regular rate and rhythm. Normal S1 and S2. No gallops. No rubs. Lungs: Equal bilaterally. No crackles. No wheezing. Abdomen: Remarkable for the pannus and the wound on the abdominal fold. Extremities: Negative for any pedal edema. No calf tenderness. MEDICATIONS: Reviewed. PLAN: We will continue with present management and continue with IV ceftaroline and also with metronidazole. [facility] /[id number]
[2019-12-09] MEDS: Magnesium Hydroxide 400 MG/5 ML Susp 30 ML Cup PO PRN (09:32)
[2019-12-09] MEDS: Nystatin Susp 100,000 Unit/ML 5 ML UD Cup PO SCH ×3 (09:33→21:38)
[2019-12-09] MEDS: Aspirin 81 MG Tab.EC PO SCH (09:33)
[2019-12-09] MEDS: amLODIPine 5 MG Tab PO SCH (09:33)
[2019-12-09] MEDS: Morphine 15 MG Tab.ER PO SCH ×2 (09:33→21:36)
[2019-12-09] MEDS: metroNIDAZOLE 250 MG Tab PO SCH ×2 (09:34→17:34)
[2019-12-09] MEDS: Multivitamins, Therapeutic with Minerals Tab PO SCH (09:34)
[2019-12-09] MEDS: atorvaSTATin 10 MG Tab PO SCH (09:34)
[2019-12-09] MEDS: Docusate Sodium 100 MG Cap PO SCH ×2 (09:34→21:36)
[2019-12-09] MEDS: Cholecalciferol (Vitamin D3) 25 MCG Tab PO SCH ×2 (09:35→21:36)
[2019-12-09] MEDS: Insulin Glarg,Human.Rec.Analog 100 Unit/ML SUBCUT SCH ×2 (09:38→21:40)
[2019-12-09] MEDS: Nystatin Topical Powder 30 GM Bottle TOP SCH ×2 (09:38→21:42)
[2019-12-09] MEDS ORDERED: Water For Injection, Sterile 20 ML ONE (10:09)
[2019-12-09] MEDS: SODIUM CHLORIDE 0.9% IV SCH ×2 (10:29→21:31)
[2019-12-09] MEDS: CEFTAROLINE FOSAMIL IV SCH ×2 (10:29→21:31)
[2019-12-09] MEDS: ALOGLIPTIN 25 MG PO SCH (13:12)
[2019-12-09] MEDS: Insulin Lispro 100 Units/ML 3 ML Vial SUBCUT SCH ×3 (13:13→17:12)
[2019-12-09] MEDS: SAXAGLIPTIN HCL 2.5 MG PO SCH (13:49)
[2019-12-09] MEDS: Morphine 2 MG/ML SYRINGE IVPUSH PRN (15:22)
[2019-12-09] MEDS: Sodium Chloride 0.9% 10 ML Syringe FLUSH PRN (21:31)
[2019-12-09] MEDS: Latanoprost 0.005% Ophth Soln 2.5 ML Bottle EYERT SCH (21:39)
[2019-12-10] MEDS: Omeprazole 20 MG Cap.CR PO SCH (05:52)
[2019-12-10] MEDS: Insulin Glarg,Human.Rec.Analog 100 Unit/ML SUBCUT SCH ×2 (09:31→21:24)
[2019-12-10] MEDS: Aspirin 81 MG Tab.EC PO SCH (09:32)
[2019-12-10] MEDS: Insulin Lispro 100 Units/ML 3 ML Vial SUBCUT SCH ×3 (09:32→17:51)
[2019-12-10] MEDS: Morphine 15 MG Tab.ER PO SCH ×2 (09:33→21:22)
[2019-12-10] MEDS: Docusate Sodium 100 MG Cap PO SCH ×2 (09:34→21:23)
[2019-12-10] MEDS: Multivitamins, Therapeutic with Minerals Tab PO SCH (09:35)
[2019-12-10] MEDS: metroNIDAZOLE 250 MG Tab PO SCH ×2 (09:35→17:51)
[2019-12-10] MEDS: Cholecalciferol (Vitamin D3) 25 MCG Tab PO SCH ×2 (09:35→21:23)
[2019-12-10] MEDS: amLODIPine 5 MG Tab PO SCH (09:35)
[2019-12-10] MEDS: atorvaSTATin 10 MG Tab PO SCH (09:36)
[2019-12-10] MEDS: Nystatin Topical Powder 30 GM Bottle TOP SCH ×2 (09:36→21:21)
[2019-12-10] MEDS: ALOGLIPTIN 25 MG PO SCH (09:36)
[2019-12-10] MEDS: Nystatin Susp 100,000 Unit/ML 5 ML UD Cup PO SCH ×3 (09:36→21:23)
[2019-12-10] MEDS: CEFTAROLINE FOSAMIL IV SCH ×2 (10:17→21:26)
[2019-12-10] MEDS: SODIUM CHLORIDE 0.9% IV SCH ×2 (10:17→21:26)
[2019-12-10] MEDS: Latanoprost 0.005% Ophth Soln 2.5 ML Bottle EYERT SCH (21:22)
[2019-12-10] MEDS: Sodium Chloride 0.9% 10 ML Syringe FLUSH PRN (21:26)
[2019-12-11] MEDS: Omeprazole 20 MG Cap.CR PO SCH (06:00)
[2019-12-11] MEDS: Insulin Lispro 100 Units/ML 3 ML Vial SUBCUT SCH ×3 (09:42→17:47)
[2019-12-11] MEDS: Docusate Sodium 100 MG Cap PO SCH ×2 (09:43→22:02)
[2019-12-11] MEDS: amLODIPine 5 MG Tab PO SCH (09:43)
[2019-12-11] MEDS: Cholecalciferol (Vitamin D3) 25 MCG Tab PO SCH ×2 (09:43→22:04)
[2019-12-11] MEDS: Nystatin Susp 100,000 Unit/ML 5 ML UD Cup PO SCH ×3 (09:43→22:03)
[2019-12-11] MEDS: Multivitamins, Therapeutic with Minerals Tab PO SCH (09:43)
[2019-12-11] MEDS: Morphine 15 MG Tab.ER PO SCH ×2 (09:43→22:03)
[2019-12-11] MEDS: metroNIDAZOLE 250 MG Tab PO SCH ×2 (09:44→17:45)
[2019-12-11] MEDS: atorvaSTATin 10 MG Tab PO SCH (09:44)
[2019-12-11] MEDS: Aspirin 81 MG Tab.EC PO SCH (09:44)
[2019-12-11] MEDS: Nystatin Topical Powder 30 GM Bottle TOP SCH ×2 (09:45→22:02)
[2019-12-11] MEDS: SODIUM CHLORIDE 0.9% IV SCH ×2 (09:45→22:14)
[2019-12-11] MEDS: CEFTAROLINE FOSAMIL IV SCH ×2 (09:45→22:14)
[2019-12-11] MEDS: Insulin Glarg,Human.Rec.Analog 100 Unit/ML SUBCUT SCH ×2 (09:46→22:06)
[2019-12-11] MEDS: ALOGLIPTIN 25 MG PO SCH (09:46)
[2019-12-11] MEDS: oxyCODONE 5 MG Tab PO PRN (14:48)
[2019-12-11] MEDS: Morphine 2 MG/ML SYRINGE IVPUSH PRN (14:48)
[2019-12-11] MEDS: Latanoprost 0.005% Ophth Soln 2.5 ML Bottle EYERT SCH (22:02)
[2019-12-11] MEDS: Sodium Chloride 0.9% 10 ML Syringe FLUSH PRN (22:14)
[2019-12-12] MEDS: Omeprazole 20 MG Cap.CR PO SCH (05:15)
[2019-12-12 07:20] LABS: ANION GAP 8.4 mEq/L (7-13)
[2019-12-12] MEDS: Insulin Lispro 100 Units/ML 3 ML Vial SUBCUT SCH ×3 (09:13→17:30)
[2019-12-12] MEDS: Insulin Glarg,Human.Rec.Analog 100 Unit/ML SUBCUT SCH ×2 (09:13→21:27)
[2019-12-12] MEDS: Nystatin Susp 100,000 Unit/ML 5 ML UD Cup PO SCH ×3 (09:16→21:25)
[2019-12-12] MEDS: ALOGLIPTIN 25 MG PO SCH (09:16)
[2019-12-12] MEDS: Morphine 15 MG Tab.ER PO SCH ×2 (09:17→21:25)
[2019-12-12] MEDS: Multivitamins, Therapeutic with Minerals Tab PO SCH (09:17)
[2019-12-12] MEDS: Cholecalciferol (Vitamin D3) 25 MCG Tab PO SCH ×2 (09:17→21:25)
[2019-12-12] MEDS: metroNIDAZOLE 250 MG Tab PO SCH (09:18)
[2019-12-12] MEDS: amLODIPine 5 MG Tab PO SCH (09:20)
[2019-12-12] MEDS: Aspirin 81 MG Tab.EC PO SCH (09:20)
[2019-12-12] MEDS: atorvaSTATin 10 MG Tab PO SCH (09:20)
[2019-12-12] MEDS: Docusate Sodium 100 MG Cap PO SCH ×2 (09:21→21:26)
[2019-12-12] MEDS: CEFTAROLINE FOSAMIL IV SCH (09:22)
[2019-12-12] MEDS: SODIUM CHLORIDE 0.9% IV SCH (09:22)
[2019-12-12] MEDS: Nystatin Topical Powder 30 GM Bottle TOP SCH ×2 (09:22→21:27)
[2019-12-12] MEDS ORDERED: Sodium Chloride 0.9% 1,000 ML IV ONE (15:30)
[2019-12-12] MEDS: Latanoprost 0.005% Ophth Soln 2.5 ML Bottle EYERT SCH (21:28)
[2019-12-13] MEDS: Omeprazole 20 MG Cap.CR PO SCH (05:38)
[2019-12-13] MEDS: Nystatin Topical Powder 30 GM Bottle TOP SCH ×2 (08:29→20:12)
[2019-12-13] MEDS: ALOGLIPTIN 25 MG PO SCH (08:30)
[2019-12-13] MEDS: Cholecalciferol (Vitamin D3) 25 MCG Tab PO SCH ×2 (08:30→20:08)
[2019-12-13] MEDS: Morphine 15 MG Tab.ER PO SCH ×2 (08:31→20:09)
[2019-12-13] MEDS: amLODIPine 5 MG Tab PO SCH (08:31)
[2019-12-13] MEDS: Multivitamins, Therapeutic with Minerals Tab PO SCH (08:34)
[2019-12-13] MEDS: Docusate Sodium 100 MG Cap PO SCH ×2 (08:35→20:08)
[2019-12-13] MEDS: atorvaSTATin 10 MG Tab PO SCH (08:35)
[2019-12-13] MEDS: Aspirin 81 MG Tab.EC PO SCH (08:36)
[2019-12-13] MEDS: Insulin Glarg,Human.Rec.Analog 100 Unit/ML SUBCUT SCH ×2 (08:37→21:27)
[2019-12-13] MEDS: Nystatin Susp 100,000 Unit/ML 5 ML UD Cup PO SCH ×3 (08:37→20:09)
[2019-12-13] MEDS: Insulin Lispro 100 Units/ML 3 ML Vial SUBCUT SCH ×3 (08:39→17:33)
[2019-12-13] MEDS: Morphine 2 MG/ML SYRINGE IVPUSH PRN (11:19)
[2019-12-13] MEDS: Sodium Chloride 0.9% 10 ML Syringe FLUSH PRN (11:20)
[2019-12-13] MEDS ORDERED: Nystatin Crm 15 GM Tube TOP PRN (12:08)
[2019-12-13] MEDS ORDERED: Acetaminophen 325 MG Tab PO ONE (15:30)
[2019-12-13] MEDS ORDERED: Nystatin Susp 100,000 Unit/ML 5 ML UD Cup PO ONE (15:38)
[2019-12-13] MEDS: Latanoprost 0.005% Ophth Soln 2.5 ML Bottle EYERT SCH (20:13)
[2019-12-14] MEDS: Omeprazole 20 MG Cap.CR PO SCH (06:31)
[2019-12-14] MEDS: Docusate Sodium 100 MG Cap PO SCH ×2 (08:46→20:32)
[2019-12-14] MEDS: Aspirin 81 MG Tab.EC PO SCH (08:46)
[2019-12-14] MEDS: Cholecalciferol (Vitamin D3) 25 MCG Tab PO SCH ×2 (08:46→20:32)
[2019-12-14] MEDS: Multivitamins, Therapeutic with Minerals Tab PO SCH (08:48)
[2019-12-14] MEDS: atorvaSTATin 10 MG Tab PO SCH (08:48)
[2019-12-14] MEDS: Morphine 15 MG Tab.ER PO SCH ×2 (08:49→20:32)
[2019-12-14] MEDS: Nystatin Susp 100,000 Unit/ML 5 ML UD Cup PO SCH ×3 (08:49→20:31)
[2019-12-14] MEDS: Insulin Lispro 100 Units/ML 3 ML Vial SUBCUT SCH ×3 (08:50→18:26)
[2019-12-14] MEDS: amLODIPine 5 MG Tab PO SCH (08:51)
[2019-12-14] MEDS: Insulin Glarg,Human.Rec.Analog 100 Unit/ML SUBCUT SCH ×2 (08:52→21:23)
[2019-12-14] MEDS: ALOGLIPTIN 25 MG PO SCH (08:52)
[2019-12-14] MEDS: Nystatin Topical Powder 30 GM Bottle TOP SCH ×2 (08:53→20:31)
[2019-12-14] MEDS: Latanoprost 0.005% Ophth Soln 2.5 ML Bottle EYERT SCH (20:34)
[2019-12-15] MEDS: Omeprazole 20 MG Cap.CR PO SCH (05:51)
[2019-12-15] MEDS: Insulin Lispro 100 Units/ML 3 ML Vial SUBCUT SCH ×3 (08:29→17:10)
[2019-12-15] MEDS: atorvaSTATin 10 MG Tab PO SCH (08:41)
[2019-12-15] MEDS: Aspirin 81 MG Tab.EC PO SCH (08:41)
[2019-12-15] MEDS: Cholecalciferol (Vitamin D3) 25 MCG Tab PO SCH ×2 (08:43→20:48)
[2019-12-15] MEDS: Multivitamins, Therapeutic with Minerals Tab PO SCH (08:43)
[2019-12-15] MEDS: Morphine 15 MG Tab.ER PO SCH ×2 (08:43→20:48)
[2019-12-15] MEDS: Docusate Sodium 100 MG Cap PO SCH ×2 (08:43→20:48)
[2019-12-15] MEDS: amLODIPine 5 MG Tab PO SCH (08:43)
[2019-12-15] MEDS: Nystatin Susp 100,000 Unit/ML 5 ML UD Cup PO SCH ×3 (08:44→20:59)
[2019-12-15] MEDS: Nystatin Topical Powder 30 GM Bottle TOP SCH ×2 (08:46→20:53)
[2019-12-15] MEDS: ALOGLIPTIN 25 MG PO SCH (08:47)
[2019-12-15] MEDS: Insulin Glarg,Human.Rec.Analog 100 Unit/ML SUBCUT SCH ×2 (08:48→20:56)
[2019-12-15 10:35] LABS: ANION GAP 11.2 mEq/L (7-13)
[2019-12-15] MEDS: Sodium Chloride 0.9% 1,000 ML IV SCH ×2 (11:20→20:47)
[2019-12-15] MEDS: Latanoprost 0.005% Ophth Soln 2.5 ML Bottle EYERT SCH (20:52)
[2019-12-16] MEDS: Omeprazole 20 MG Cap.CR PO SCH (05:24)
[2019-12-16] MEDS: Sodium Chloride 0.9% 1,000 ML IV SCH ×2 (05:24→18:40)
[2019-12-16 06:26] LABS: ANION GAP 11.3 mEq/L (7-13)
[2019-12-16] MEDS: Insulin Glarg,Human.Rec.Analog 100 Unit/ML SUBCUT SCH ×2 (09:12→21:24)
[2019-12-16] MEDS: amLODIPine 5 MG Tab PO SCH (09:14)
[2019-12-16] MEDS: ALOGLIPTIN 25 MG PO SCH (09:14)
[2019-12-16] MEDS: Multivitamins, Therapeutic with Minerals Tab PO SCH (09:15)
[2019-12-16] MEDS: atorvaSTATin 10 MG Tab PO SCH (09:15)
[2019-12-16] MEDS: Docusate Sodium 100 MG Cap PO SCH ×2 (09:15→21:26)
[2019-12-16] MEDS: Aspirin 81 MG Tab.EC PO SCH (09:15)
[2019-12-16] MEDS: Cholecalciferol (Vitamin D3) 25 MCG Tab PO SCH ×2 (09:15→21:25)
[2019-12-16] MEDS: Nystatin Susp 100,000 Unit/ML 5 ML UD Cup PO SCH ×3 (09:15→21:26)
[2019-12-16] MEDS: Morphine 15 MG Tab.ER PO SCH ×2 (09:16→21:25)
[2019-12-16] MEDS: Insulin Lispro 100 Units/ML 3 ML Vial SUBCUT SCH ×3 (09:20→17:47)
[2019-12-16] MEDS: Nystatin Topical Powder 30 GM Bottle TOP SCH ×2 (09:20→21:27)
--- NOTE | 2019-12-16 11:04 | PCM.PN ---
- General Info Date of Service: 12/16/19 Subjective Update: Patient seen and examined today. Reports right leg weakness which is improving. Has no new complaints. Functional Status: Reports: Pain Controlled - Review of Systems General: Reports: No Symptoms HEENT: Reports: No Symptoms Pulmonary: Reports: No Symptoms Cardiovascular: Reports: No Symptoms Gastrointestinal: Reports: No Symptoms Genitourinary: Reports: No Symptoms Musculoskeletal: Reports: No Symptoms Skin: Reports: No Symptoms Neurological: Reports: No Symptoms Psychiatric: Reports: No Symptoms - Patient Data Vitals - Most Recent: Last Vital Signs Temp 98.2 F 12/15/19 20:00 Pulse 82 12/15/19 20:00 Resp 16 12/15/19 20:00 BP 131/85 12/16/19 09:14 Pulse Ox 98 12/15/19 20:00 Weight - Most Recent: 232 lb 9.6 oz I&O - Last 24 Hours: Intake & Output 12/15/19 12/16/19 12/16/19 22:59 06:59 14:59 Intake Total 775 1932 320 Balance 775 1932 320 Lab Results Last 24 Hours: Laboratory Results - last 24 hr 12/15/19 12/15/19 12/15/19 Range/Units 11:41 16:54 20:55 Sodium (136-145) mmol/L Potassium (3.5-5.1) mmol/L Chloride (98-107) mmol/L Carbon Dioxide (21-32) mmol/L Anion Gap (7-13) mEq/L BUN (7-18) mg/dL Creatinine (0.55-1.02) mg/dL Est Cr Clr Drug Dosing mL/min Estimated GFR (MDRD) Glucose (74-99) mg/dL POC Glucose 185 H 212 H 125 H (70-105) mg/dl Calcium (8.5-10.1) mg/dL 12/16/19 Range/Units 06:01 Sodium 141 (136-145) mmol/L Potassium 4.3 (3.5-5.1) mmol/L Chloride 107 (98-107) mmol/L Carbon Dioxide 27 (21-32) mmol/L Anion Gap 11.3 (7-13) mEq/L BUN 20 H (7-18) mg/dL Creatinine 1.63 H (0.55-1.02) mg/dL Est Cr Clr Drug Dosing 36.78 mL/min Estimated GFR (MDRD) 33 Glucose 128 H (74-99) mg/dL POC Glucose (70-105) mg/dl Calcium 8.4 L (8.5-10.1) mg/dL Med Orders - Current: Current Medications Acetaminophen (Tylenol) 650 mg PO Q6H PRN PRN Reason: Pain (mild 1-3) Albuterol (Proventil Hfa) 0 gm INH Q4H PRN PRN Reason: sob Amlodipine Besylate (Norvasc) 5 mg PO DAILY [facility] Last Admin: 12/16/19 09:14 Dose: 5 mg Documented by: Aspirin (Halfprin) 81 mg PO DAILY [facility] Last Admin: 12/16/19 09:15 Dose: 81 mg Documented by: Atorvastatin Calcium (Lipitor) 10 mg PO DAILY [facility] Last Admin: 12/16/19 09:15 Dose: 10 mg Documented by: Bisacodyl (Dulcolax) 10 mg RECTAL DAILY PRN PRN Reason: Constipation, use 2nd Last Admin: 12/07/19 13:33 Dose: 10 mg Documented by: Cholecalciferol (Vitamin D3) 25 mcg PO BID [facility] Last Admin: 12/16/19 09:15 Dose: 25 mcg Documented by: Docusate Sodium (Colace) 100 mg PO BID [facility] Last Admin: 12/16/19 09:15 Dose: 100 mg Documented by: Sodium Chloride (Normal Saline) 1,000 mls @ 100 mls/hr IV ASDIRECTED [facility] Last Admin: 12/16/19 05:24 Dose: 100 mls/hr Documented by: Insulin Glargine (Lantus) 30 unit SUBCUT BID [facility] Last Admin: 12/16/19 09:12 Dose: 30 units Documented by: Insulin Human Lispro (Humalog) 0 unit SUBCUT TIDMEALS [facility]; Protocol Last Admin: 12/16/19 09:20 Dose: Not Given Documented by: Latanoprost (Xalatan 0.005% Ophth Soln) 0 ml EYERT BEDTIME [facility] Last Admin: 12/15/19 20:52 Dose: 1 drop Documented by: Magnesium Hydroxide (Milk Of Magnesia) 30 ml PO DAILY PRN PRN Reason: Constipation, use first Last Admin: 12/09/19 09:32 Dose: 30 ml Documented by: Morphine Sulfate (Ms Contin) 15 mg PO Q12HR [facility] Last Admin: 12/16/19 09:16 Dose: 15 mg Documented by: Morphine Sulfate (Morphine) 2 mg IVPUSH ASDIRECTED PRN PRN Reason: Pain Last Admin: 12/13/19 11:19 Dose: 2 mg Documented by: Multivitamins/Minerals (Vitamins And Minerals) 1 tab PO DAILY [facility] Last Admin: 12/16/19 09:15 Dose: 1 tab Documented by: Alogliptin [Nesina] (25 Mg Tab *Own Med*) 25 mg PO DAILY [facility] Last Admin: 12/16/19 09:14 Dose: 25 mg Documented by: Nystatin (Nystop) 0 gm TOP BID [facility] Last Admin: 12/16/19 09:20 Dose: 1 applic Documented by: Nystatin (Mycostatin) 5 ml PO TID [facility] Last Admin: 12/16/19 09:15 Dose: 5 ml Documented by: Nystatin (Nystatin Crm) 0 gm TOP QID PRN PRN Reason: fungal infection Omeprazole (Omeprazole) 20 mg PO ACBREAKFAST [facility] Last Admin: 12/16/19 05:24 Dose: 20 mg Documented by: Ondansetron HCl (Zofran Odt) 4 mg PO Q4H PRN PRN Reason: nausea, able to take PO Last Admin: 12/07/19 11:13 Dose: 4 mg Documented by: Oxycodone HCl (Oxycodone) 5 mg PO Q4HR PRN PRN Reason: Pain (moderate 4-6) Last Admin: 12/11/19 14:48 Dose: 5 mg Documented by: Pioglitazone HCl (Actos) 15 mg PO DAILY [facility] Last Admin: 12/16/19 09:15 Dose: 15 mg Documented by: Senna/Docusate Sodium (Senna Plus) 1 tab PO DAILY PRN PRN Reason: Constipation Last Admin: 12/14/19 08:47 Dose: 1 tab Documented by: Senna/Docusate Sodium (Senna Plus) 1 tab PO BID [facility] Last Admin: 12/16/19 09:15 Dose: 1 tab Documented by: Sodium Chloride (Saline Flush) 10 ml FLUSH ASDIRECTED PRN PRN Reason: Keep Vein Open Last Admin: 12/13/19 11:20 Dose: 10 ml Documented by: Discontinued Medications Acetaminophen (Tylenol) 650 mg PO .STK-MED ONE Stop: 12/13/19 15:31 Docusate Sodium (Colace) 100 mg PO BID PRN PRN Reason: Constipation Last Admin: 12/06/19 06:04 Dose: 100 mg Documented by: Ceftaroline Fosamil 400 mg/ (Sodium Chloride) 100 mls @ 100 mls/hr IV Q12HR [facility] Last Admin: 12/12/19 09:22 Dose: 100 mls/hr Documented by: Sterile Water (Sterile Water For Injection) Confirm Administered Dose 20 mls @ as directed .ROUTE .STK-MED ONE Stop: 12/06/19 22:26 Last Admin: 12/06/19 22:25 Dose: 20 mls/hr Documented by: Sterile Water (Sterile Water For Injection) Confirm Administered Dose 20 mls @ as directed .ROUTE .STK-MED ONE Stop: 12/07/19 22:26 Last Admin: 12/07/19 23:06 Dose: 100 mls/hr Documented by: Sterile Water (Sterile Water For Injection) Confirm Administered Dose 20 mls @ as directed .ROUTE .STK-MED ONE Stop: 12/09/19 10:10 Last Admin: 12/09/19 13:47 Dose: Not Given Documented by: Sodium Chloride (Normal Saline) 1,000 mls @ 999 mls/hr IV .BOLUS ONE Stop: 12/12/19 16:30 Last Admin: 12/12/19 16:07 Dose: 999 mls/hr Documented by: Insulin Human Lispro (Humalog) 40 unit SUBCUT BIDMEALS [facility] Last Admin: 12/09/19 13:47 Dose: Not Given Documented by: Insulin Human Lispro (Humalog) 30 unit SUBCUT ACLUNCH [facility] Last Admin: 12/08/19 12:30 Dose: 30 unit Documented by: Insulin Lispro Protam/Lispro Human (Humalog Mix 75-25) 15 unit SUBCUT ONETIME ONE Stop: 12/07/19 13:58 Last Admin: 12/07/19 14:05 Dose: 15 unit Documented by: Magnesium Citrate (Citrate Of Magnesia) 296 ml PO ONETIME ONE Stop: 12/08/19 09:08 Last Admin: 12/08/19 09:34 Dose: 296 ml Documented by: Metronidazole (Metronidazole) 500 mg PO BIDMEALS [facility] Last Admin: 12/12/19 09:18 Dose: 500 mg Documented by: Non-Formulary Medication (Saxagliptin Hcl [Onglyza]) 2.5 mg PO DAILY [facility] Last Admin: 12/09/19 13:49 Dose: Not Given Documented by: Non-Formulary Medication (Trolamine Salicylate/Aloe Vera) 1 applic TOP QID PRN PRN Reason: Pain Nystatin (Mycostatin) 5 ml PO .STK-MED ONE Stop: 12/13/19 15:39 - Exam General: Alert, Oriented HEENT: Pupils Equal, Pupils Reactive, EOMI, Mucous Membr. Moist/[place] Neck: Supple Lungs: Clear to Auscultation, Normal Respiratory Effort Cardiovascular: Regular Rate, Regular Rhythm GI/Abdominal Exam: Normal Bowel Sounds, Soft, Non-Tender, No Organomegaly, No Distention, No Abnormal Bruit, No Mass, Pelvis Stable Back Exam: Normal Inspection, Full Range of Motion Extremities: Normal Inspection, Normal Range of Motion, Non-Tender, No Pedal Edema, Normal Capillary Refill Skin: Warm, Dry Wound/Incisions: Healing Well, Other (Wound VAC in place) Neurological: No New Focal Deficit Psy/Mental Status: Alert, Normal Affect, Normal Mood Sepsis Event Note - Evaluation Sepsis Screening Result: No Definite Risk - Focused Exam Vital Signs: Vital Signs BP 12/16/19 09:14 131/85 - Problem List Review Problem List Initiated/Reviewed/Updated: Yes - My Orders Last 24 Hours: My Active Orders 12/15/19 10:45 Sodium Chloride 0.9% [Normal Saline] 1,000 ml IV ASDIRECTED - Plan Plan:: Patient is a 54-year-old female with a medical history of type 2 diabetes mellitus, hypertension, obesity who was recently hospitalized for recently hospitalized for sepsis with cellulitis of the left lower abdomen status post incision and drainage and debridement of necrotizing soft tissue, status post wound VAC placement, with wound culture growing MRSA and anaerobes. Patient was here to complete antibiotics, continue wound care and participate in physical occupational therapies. Necrotizing soft tissue infection of the abdominal wall Completed antibiotics Continue wound cares Hypertension Continue home antibiosis Type 2 diabetes mellitus Blood sugar within acceptable limits Continue insulin regimen
[2019-12-16] MEDS: Latanoprost 0.005% Ophth Soln 2.5 ML Bottle EYERT SCH (21:27)
[2019-12-17] MEDS: Sodium Chloride 0.9% 1,000 ML IV SCH (05:06)
[2019-12-17] MEDS: Omeprazole 20 MG Cap.CR PO SCH (05:08)
[2019-12-17] MEDS: Insulin Lispro 100 Units/ML 3 ML Vial SUBCUT SCH ×3 (07:35→17:53)
[2019-12-17] MEDS: Nystatin Susp 100,000 Unit/ML 5 ML UD Cup PO SCH ×3 (08:55→20:30)
[2019-12-17] MEDS: Multivitamins, Therapeutic with Minerals Tab PO SCH (08:56)
[2019-12-17] MEDS: Aspirin 81 MG Tab.EC PO SCH (08:56)
[2019-12-17] MEDS: Cholecalciferol (Vitamin D3) 25 MCG Tab PO SCH ×2 (08:56→20:30)
[2019-12-17] MEDS: Docusate Sodium 100 MG Cap PO SCH ×2 (08:56→20:32)
[2019-12-17] MEDS: atorvaSTATin 10 MG Tab PO SCH (08:56)
[2019-12-17] MEDS: Morphine 15 MG Tab.ER PO SCH ×2 (08:56→20:30)
[2019-12-17] MEDS: Nystatin Topical Powder 30 GM Bottle TOP SCH ×2 (08:57→21:00)
[2019-12-17] MEDS: amLODIPine 5 MG Tab PO SCH (08:57)
[2019-12-17] MEDS: ALOGLIPTIN 25 MG PO SCH (08:59)
[2019-12-17] MEDS: Polyethylene Glycol 3350 Powder 17 GM Packet PO SCH (09:09)
[2019-12-17] MEDS: Insulin Glarg,Human.Rec.Analog 100 Unit/ML SUBCUT SCH ×2 (09:11→20:28)
[2019-12-17] MEDS: Latanoprost 0.005% Ophth Soln 2.5 ML Bottle EYERT SCH (21:00)
[2019-12-18] MEDS: Omeprazole 20 MG Cap.CR PO SCH (05:34)
[2019-12-18] MEDS: Insulin Lispro 100 Units/ML 3 ML Vial SUBCUT SCH ×3 (07:47→16:45)
[2019-12-18] MEDS: Nystatin Topical Powder 30 GM Bottle TOP SCH ×2 (08:31→20:34)
[2019-12-18] MEDS: ALOGLIPTIN 25 MG PO SCH (08:32)
[2019-12-18] MEDS: Polyethylene Glycol 3350 Powder 17 GM Packet PO SCH (08:33)
[2019-12-18] MEDS: amLODIPine 5 MG Tab PO SCH (08:34)
[2019-12-18] MEDS: Docusate Sodium 100 MG Cap PO SCH ×2 (08:34→20:33)
[2019-12-18] MEDS: Multivitamins, Therapeutic with Minerals Tab PO SCH (08:34)
[2019-12-18] MEDS: Aspirin 81 MG Tab.EC PO SCH (08:34)
[2019-12-18] MEDS: Morphine 15 MG Tab.ER PO SCH ×2 (08:35→20:33)
[2019-12-18] MEDS: Cholecalciferol (Vitamin D3) 25 MCG Tab PO SCH ×2 (08:35→20:33)
[2019-12-18] MEDS: atorvaSTATin 10 MG Tab PO SCH (08:35)
[2019-12-18] MEDS: Nystatin Susp 100,000 Unit/ML 5 ML UD Cup PO SCH ×3 (08:36→20:33)
[2019-12-18] MEDS: Insulin Glarg,Human.Rec.Analog 100 Unit/ML SUBCUT SCH ×2 (08:37→21:11)
[2019-12-18] MEDS: oxyCODONE 5 MG Tab PO PRN (13:22)
[2019-12-18] MEDS: Latanoprost 0.005% Ophth Soln 2.5 ML Bottle EYERT SCH (20:35)
[2019-12-19] MEDS: Omeprazole 20 MG Cap.CR PO SCH (05:26)
[2019-12-19 08:09] VITALS: BP 111/60; PULSE 83
[2019-12-19] MEDS: Insulin Lispro 100 Units/ML 3 ML Vial SUBCUT SCH ×2 (08:56→12:04)
[2019-12-19] MEDS: Polyethylene Glycol 3350 Powder 17 GM Packet PO SCH (09:08)
[2019-12-19] MEDS: ALOGLIPTIN 25 MG PO SCH (09:09)
[2019-12-19] MEDS: Aspirin 81 MG Tab.EC PO SCH (09:11)
[2019-12-19] MEDS: Cholecalciferol (Vitamin D3) 25 MCG Tab PO SCH (09:11)
[2019-12-19] MEDS: amLODIPine 5 MG Tab PO SCH (09:12)
[2019-12-19] MEDS: Docusate Sodium 100 MG Cap PO SCH (09:13)
[2019-12-19] MEDS: Multivitamins, Therapeutic with Minerals Tab PO SCH (09:13)
[2019-12-19] MEDS: Morphine 15 MG Tab.ER PO SCH (09:14)
[2019-12-19] MEDS: atorvaSTATin 10 MG Tab PO SCH (09:14)
[2019-12-19] MEDS: Nystatin Susp 100,000 Unit/ML 5 ML UD Cup PO SCH ×2 (09:14→14:08)
[2019-12-19] MEDS: Nystatin Topical Powder 30 GM Bottle TOP SCH (09:16)
[2019-12-19] MEDS: Insulin Glarg,Human.Rec.Analog 100 Unit/ML SUBCUT SCH (09:18)
[2019-12-19] MEDS ORDERED: FLU Vacc QS2020-21 36MOS UP/PF 60 MCG/0.5 ML Syringe IM ONE (11:00)
--- NOTE | 2019-12-19 11:17 | PCM.DCSUM1 ---
Discharge Summary - Hospital Course Free Text/Narrative:: Patient is a 54-year-old female with a medical history of type 2 diabetes mellitus, hypertension, obesity who was recently hospitalized for recently hospitalized for sepsis with cellulitis of the left lower abdomen status post incision and drainage and debridement of necrotizing soft tissue, status post wound VAC placement, with wound culture growing MRSA and anaerobes. She was admitted to swing bed to complete IV antibiotics. Her stay was uncomplicated. She was discharged home in stable condition with plan to follow-up with PCP, ID and general surgery. Diagnosis: Stroke: No - Discharge Data Discharge Date: 12/19/19 Discharge Disposition: Home, Self-Care 01 Condition: Good - Referral to Home Health Primary Care Physician: Nicholas Paul MD - Patient Summary/Data Consults: Consultations 12/06/19 11:01 OT Evaluation and Treatment [CONS] Routine 12/06/19 11:02 PT Evaluation and Treatment [CONS] Routine - Patient Instructions Diet: Diabetic Diet Activity: As Tolerated Showering/Bathing: May Shower Notify Provider of: Fever, Increased Pain, Swelling and Redness, Nausea and/or Vomiting - Discharge Plan *PRESCRIPTION DRUG MONITORING PROGRAM REVIEWED*: Not Applicable *COPY OF PRESCRIPTION DRUG MONITORING REPORT IN PATIENT JASMYN: Not Applicable Prescriptions/Med Rec: Nystatin [Mycostatin] 5 ml PO TID #1 cup Home Medications: Home Meds Insulin Detemir [Levemir Flexpen] 30 units SUBCUT BID 02/04/14 [History] Multivitamin [Multi-Vitamin Daily] 1 tab PO DAILY 02/04/14 [History] Albuterol [Proventil HFA] 2 inh PO Q46H PRN 12/22/15 [History] Cholecalciferol (Vitamin D3) [Vitamin D3] 1,000 units PO BID 12/22/15 [History] Insulin Aspart [NovoLOG] 40 unit SUBCUT BIDMEALS 12/22/15 [History] atorvaSTATin Calcium [Atorvastatin Calcium] 10 mg PO DAILY 12/22/15 [History] Aspirin [Halfprin] 81 mg PO DAILY 03/13/16 [History] Latanoprost [Xalatan 0.005% Ophth Soln] 1 drop EYERT BEDTIME 12/05/19 [History] Morphine [MS Contin] 15 mg PO Q12HR 12/05/19 [History] Omeprazole Magnesium [Prilosec Otc] 20 mg PO ACBREAKFAST 12/05/19 [History] Pioglitazone [Actos] 15 mg PO DAILY 12/05/19 [History] Trolamine Salicylate/Aloe Vera [Aspercreme 10%] 1 applic TOP QID PRN 12/05/19 [History] amLODIPine [Norvasc] 5 mg PO DAILY 12/05/19 [History] metroNIDAZOLE [Flagyl] 500 mg PO Q12HR MDD x10 days 12/05/19 [History] oxyCODONE 5 mg PO Q4HR PRN 12/05/19 [History] Alogliptin Benzoate [Alogliptin] 25 mg PO DAILY 12/09/19 [History] Insulin Aspart [NovoLOG] 30 units SUBCUT WITHLUNCH 12/09/19 [History] Nystatin [Mycostatin] 5 ml PO TID #1 cup 12/19/19 [Rx] Oxygen Therapy Mode: Room Air Patient Handouts: Cellulitis, Adult, [id number] Referrals: Nicholas Paul MD [Primary Care Provider] - - Discharge Summary/Plan Comment DC Time >30 min.: Yes - Patient Data Vitals - Most Recent: Last Vital Signs Temp 98.2 F 12/19/19 08:00 Pulse 83 12/19/19 08:00 Resp 16 12/19/19 08:00 BP 111/60 12/19/19 09:12 Pulse Ox 99 12/19/19 08:00 Weight - Most Recent: 232 lb 9.6 oz I&O - Last 24 hours: Intake & Output 12/18/19 12/19/19 12/19/19 22:59 06:59 14:59 Intake Total 200 Balance 200 Lab Results - Last 24 hrs: Laboratory Results - last 24 hr 12/18/19 12/18/19 12/18/19 Range/Units 11:31 16:25 20:32 POC Glucose 162 H 112 H 162 H (70-105) mg/dl 12/19/19 Range/Units 07:34 POC Glucose 140 H (70-105) mg/dl Med Orders - Current: Current Medications Acetaminophen (Tylenol) 650 mg PO Q6H PRN PRN Reason: Pain (mild 1-3) Albuterol (Proventil Hfa) 0 gm INH Q4H PRN PRN Reason: sob Amlodipine Besylate (Norvasc) 5 mg PO DAILY [facility] Last Admin: 12/19/19 09:12 Dose: 5 mg Documented by: Aspirin (Halfprin) 81 mg PO DAILY [facility] Last Admin: 12/19/19 09:11 Dose: 81 mg Documented by: Atorvastatin Calcium (Lipitor) 10 mg PO DAILY [facility] Last Admin: 12/19/19 09:14 Dose: 10 mg Documented by: Bisacodyl (Dulcolax) 10 mg RECTAL DAILY PRN PRN Reason: Constipation, use 2nd Last Admin: 12/07/19 13:33 Dose: 10 mg Documented by: Cholecalciferol (Vitamin D3) 25 mcg PO BID [facility] Last Admin: 12/19/19 09:11 Dose: 25 mcg Documented by: Docusate Sodium (Colace) 100 mg PO BID [facility] Last Admin: 12/19/19 09:13 Dose: 100 mg Documented by: Insulin Glargine (Lantus) 30 unit SUBCUT BID [facility] Last Admin: 12/19/19 09:18 Dose: 30 units Documented by: Insulin Human Lispro (Humalog) 0 unit SUBCUT TIDMEALS [facility]; Protocol Last Admin: 12/19/19 08:56 Dose: Not Given Documented by: Latanoprost (Xalatan 0.005% Ophth Soln) 0 ml EYERT BEDTIME [facility] Last Admin: 12/18/19 20:35 Dose: 1 drop Documented by: Magnesium Hydroxide (Milk Of Magnesia) 30 ml PO DAILY PRN PRN Reason: Constipation, use first Last Admin: 12/09/19 09:32 Dose: 30 ml Documented by: Morphine Sulfate (Ms Contin) 15 mg PO Q12HR [facility] Last Admin: 12/19/19 09:14 Dose: 15 mg Documented by: Morphine Sulfate (Morphine) 2 mg IVPUSH ASDIRECTED PRN PRN Reason: Pain Last Admin: 12/13/19 11:19 Dose: 2 mg Documented by: Multivitamins/Minerals (Vitamins And Minerals) 1 tab PO DAILY [facility] Last Admin: 12/19/19 09:13 Dose: 1 tab Documented by: Alogliptin [Nesina] (25 Mg Tab *Own Med*) 25 mg PO DAILY [facility] Last Admin: 12/19/19 09:09 Dose: 25 mg Documented by: Nystatin (Nystop) 0 gm TOP BID [facility] Last Admin: 12/19/19 09:16 Dose: 1 applic Documented by: Nystatin (Mycostatin) 5 ml PO TID [facility] Last Admin: 12/19/19 09:14 Dose: 5 ml Documented by: Nystatin (Nystatin Crm) 0 gm TOP QID PRN PRN Reason: fungal infection Omeprazole (Omeprazole) 20 mg PO ACBREAKFAST [facility] Last Admin: 12/19/19 05:26 Dose: 20 mg Documented by: Ondansetron HCl (Zofran Odt) 4 mg PO Q4H PRN PRN Reason: nausea, able to take PO Last Admin: 12/07/19 11:13 Dose: 4 mg Documented by: Oxycodone HCl (Oxycodone) 5 mg PO Q4HR PRN PRN Reason: Pain (moderate 4-6) Last Admin: 12/18/19 13:22 Dose: 5 mg Documented by: Pioglitazone HCl (Actos) 15 mg PO DAILY [facility] Last Admin: 12/19/19 09:17 Dose: 15 mg Documented by: Polyethylene Glycol (Miralax) 17 gm PO DAILY [facility] Last Admin: 12/19/19 09:08 Dose: 17 gm Documented by: Senna/Docusate Sodium (Senna Plus) 1 tab PO DAILY PRN PRN Reason: Constipation Last Admin: 12/14/19 08:47 Dose: 1 tab Documented by: Senna/Docusate Sodium (Senna Plus) 1 tab PO BID [facility] Last Admin: 12/19/19 09:10 Dose: 1 tab Documented by: Sodium Chloride (Saline Flush) 10 ml FLUSH ASDIRECTED PRN PRN Reason: Keep Vein Open Last Admin: 12/13/19 11:20 Dose: 10 ml Documented by: Discontinued Medications Acetaminophen (Tylenol) 650 mg PO .STK-MED ONE Stop: 12/13/19 15:31 Docusate Sodium (Colace) 100 mg PO BID PRN PRN Reason: Constipation Last Admin: 12/06/19 06:04 Dose: 100 mg Documented by: Ceftaroline Fosamil 400 mg/ (Sodium Chloride) 100 mls @ 100 mls/hr IV Q12HR [facility] Last Admin: 12/12/19 09:22 Dose: 100 mls/hr Documented by: Sterile Water (Sterile Water For Injection) Confirm Administered Dose 20 mls @ as directed .ROUTE .STK-MED ONE Stop: 12/06/19 22:26 Last Admin: 12/06/19 22:25 Dose: 20 mls/hr Documented by: Sterile Water (Sterile Water For Injection) Confirm Administered Dose 20 mls @ as directed .ROUTE .[facility] ONE Stop: 12/07/19 22:26 Last Admin: 12/07/19 23:06 Dose: 100 mls/hr Documented by: Sterile Water (Sterile Water For Injection) Confirm Administered Dose 20 mls @ as directed .ROUTE .[facility] ONE Stop: 12/09/19 10:10 Last Admin: 12/09/19 13:47 Dose: Not Given Documented by: Sodium Chloride (Normal Saline) 1,000 mls @ 999 mls/hr IV .BOLUS ONE Stop: 12/12/19 16:30 Last Admin: 12/12/19 16:07 Dose: 999 mls/hr Documented by: Sodium Chloride (Normal Saline) 1,000 mls @ 100 mls/hr IV ASDIRECTED [facility] Last Infusion: 12/17/19 10:36 Dose: 0 mls/hr Documented by: Influenza Virus Vaccine (Afluria Quad 2019- (3yr Up)) 60 mcg IM .ONCE ONE Stop: 12/19/19 11:01 Insulin Human Lispro (Humalog) 40 unit SUBCUT BIDMEALS [facility] Last Admin: 12/09/19 13:47 Dose: Not Given Documented by: Insulin Human Lispro (Humalog) 30 unit SUBCUT ACLUNCH [facility] Last Admin: 12/08/19 12:30 Dose: 30 unit Documented by: Insulin Lispro Protam/Lispro Human (Humalog Mix 75-25) 15 unit SUBCUT ONETIME ONE Stop: 12/07/19 13:58 Last Admin: 12/07/19 14:05 Dose: 15 unit Documented by: Magnesium Citrate (Citrate Of Magnesia) 296 ml PO ONETIME ONE Stop: 12/08/19 09:08 Last Admin: 12/08/19 09:34 Dose: 296 ml Documented by: Metronidazole (Metronidazole) 500 mg PO BIDMEALS [facility] Last Admin: 12/12/19 09:18 Dose: 500 mg Documented by: Non-Formulary Medication (Saxagliptin Hcl [Onglyza]) 2.5 mg PO DAILY [facility] Last Admin: 12/09/19 13:49 Dose: Not Given Documented by: Non-Formulary Medication (Trolamine Salicylate/Aloe Vera) 1 applic TOP QID PRN PRN Reason: Pain Nystatin (Mycostatin) 5 ml PO .STK-MED ONE Stop: 12/13/19 15:39
== END 2019-12-19 14:00 | disposition home or self-care (01) | DRG 301 ==
LOC: DL.MS 14:43 → UNDOADMIN 14:43 → EEVIPCON 15:38 → DL.MS 15:38
PROVIDERS: ADMIT Internal Medicine; ATTEND Student in an Organized Health Care Education/Training Program
DX: I96 Gangrene, not elsewhere classified (principal); I10 Essential (primary) hypertension; E11.9 Type 2 diabetes mellitus without complications; E66.9 Obesity, unspecified; Z79.4 Long term (current) use of insulin; Z79.899 Other long term (current) drug therapy; Z79.82 Long term (current) use of aspirin; Z88.1 Allergy status to other antibiotic agents; Z88.5 Allergy status to narcotic agent; Z88.8 Allergy status to other drugs, medicaments and biological substances; Z68.37 Body mass index [BMI] 37.0-37.9, adult; Z23 Encounter for immunization
CPT/HCPCS: 36415; 80048; 80053; 82962; 85025; 85027; 85651; 86140; 90686; 97110-GO; 97110-GP; 97116-GP; 97140-GP; 97162-GP; 97165-GO; 97530-GO; A9270-GY; J0712; J1815-GY; J2270; J7030; J7050

== ENCOUNTER 2021-10-15 16:30 | Emergency (ER) | payer MEDICAID ==
[2021-10-15 16:52] VITALS: BP 132/107
[2021-10-15] MEDS ORDERED: Sodium Chloride 0.9% 10 ML Syringe FLUSH PRN ×2 (17:01→17:02)
[2021-10-15 17:46] LABS: ANION GAP 10.6 mEq/L (7-13)
[2021-10-15] MEDS ORDERED: Iopamidol 612 MG/ML 100 ML Bottle IVPUSH ONE (17:57)
[2021-10-15 19:26] VITALS: PULSE 96
== END 2021-10-15 19:18 ==
LOC: DL.ED 16:30
DX: L03.811 Cellulitis of head [any part, except face] (principal); K21.9 Gastro-esophageal reflux disease without esophagitis; I10 Essential (primary) hypertension; E11.9 Type 2 diabetes mellitus without complications; E66.9 Obesity, unspecified; Z68.37 Body mass index [BMI] 37.0-37.9, adult; Z88.1 Allergy status to other antibiotic agents; Z88.8 Allergy status to other drugs, medicaments and biological substances; Z91.011 Allergy to milk products; Z79.4 Long term (current) use of insulin; Z79.899 Other long term (current) drug therapy; Z79.82 Long term (current) use of aspirin; Z86.16 Personal history of COVID-19; Z20.822 Contact with and (suspected) exposure to COVID-19
CPT/HCPCS: 36415; 73701; 80053; 83605; 85025; 86140; 87040; 87635; 96360; 99284; 99285; J3370; J7040; Q9967; U0002